=== PATIENT | female | born 2000 | race Caucasian/White ===

== ENCOUNTER 2022-03-23 07:42 | Outpatient (CLI) | payer OTHER ==
[~2022-03-23 07:42] MED LIST: CEFPROZIL500 MG; DESPEC DM SYRU473 ML; [UNRECOGNIZED DRUG - OTHER]
== END 2022-03-23 07:43 | disposition home or self-care (01) ==
LOC: NUCLEAR 07:42
PROVIDERS: ATTEND Internal Medicine
DX: I47.1 Supraventricular tachycardia (principal)